=== PATIENT | female | born 1950 | race Caucasian/White ===

== ENCOUNTER 2018-11-30 13:10 | Inpatient (IN) | payer MEDICARE, OTHER ==
[~2018-11-30] VITALS: Ht 149.9 cm; Wt 40.8 kg
[~2018-11-30 13:10] MED LIST: INSU100V11 SQ; LEVO88TA2 PO
--- NOTE | 2018-11-30 13:25 | NUR ---
ARON FROM HOME C/O NAUSEA AND VOMITING X 30 MINS COGNOS REPORT DEVELOPER. BG OVER 500 COGNOS REPORT DEVELOPER, ZOFRAN GIVEN IN THE FIELD. PT AOX4, AMB, VSS, RR EVEN AND UNLABORED ON RA. MADE COMFORTABLE AND HOOKED TO MONITOR. READY FOR EVAL.
[2018-11-30] MEDS ORDERED: IV NS 0.9% 1,000 ML BAG IV ONE ×2 (13:30→16:30)
--- NOTE | 2018-11-30 13:31 | NUR ---
BG 490. DR LACY AWARE
[2018-11-30 14:10] LABS: BASOPHILS # (AUTO) 0.1 /CMM (0.0-0.2); BASOPHILS % (AUTO) 0.4 % (0.0-2.0); EOSINOPHILS % (AUTO) 0.1 % (0.0-6.0); HEMATOCRIT 41 % (33-45); HEMOGLOBIN 13.3 g/dL (11.5-14.8); LYMPHOCYTES # (AUTO) 0.7 /CMM (0.8-4.8); LYMPHOCYTES % (AUTO) 4.1 % (20.0-44.0); MEAN CORPUSCULAR HGB CONC 33 g/dl (31.0-36.0); MEAN CORPUSCULAR VOLUME 103 fL (82-100); MONOCYTES # (AUTO) 0.7 /CMM (0.1-1.30); MONOCYTES % (AUTO) 4.1 % (2.0-12.0); NEUTROPHILS # (AUTO) 15.9 /CMM (1.8-8.9); NEUTROPHILS % (AUTO) 91.3 % (43.0-81.0); PLATELET COUNT (AUTO) 221 /CMM (150-450); RED BLOOD CELL COUNT(AUTO) 3.95 MIL/uL (4.0-5.2); WHITE BLOOD COUNT (AUTO) 17.4 K/uL (4.3-11.0)
--- NOTE | 2018-11-30 14:15 | NUR ---
PT FEELING STOMACH DISCOMFORT. STATES IT FEELS LIKE SHE "NEEDS TO MOVE HER BOWELS". ENCOURAGED HER TO TRY TO GO TO THE BATHROOM.
[2018-11-30 14:18] LABS: APPEARANCE,URINE Clear (CLEAR); BILIRUBIN,URINE Negative (NEGATIVE); BLOOD, URINE Trace-intact Ery/uL (NEGATIVE); COLOR,URINE Yellow (YELLOW); KETONES,URINE 80 (NEGATIVE); LEUKOCYTE ESTERASE ,URINE Negative (NEGATIVE); NITRITE, URINE Negative (NEGATIVE); PH,URINE 5.5 (5.0-8.0); PROTEIN,URINE Trace mg/dl (NEGATIVE); UGLUCOSE 500 MG/DL mg/dL (NEGATIVE); UROBILINOGEN,URINE 0.2 EU/dL (0.2)
--- NOTE | 2018-11-30 14:20 | NUR ---
ADRIA CADENA AT BEDSIDE
[2018-11-30] MEDS ORDERED: MORPHINE SULFATE INJ 2 MG/ML DISP.SYRIN IV ONE (14:30)
[2018-11-30] MEDS ORDERED: ONDANSETRON HCL/PF 4 MG/2 ML VIAL IV ONE (14:30)
[2018-11-30] MEDS ORDERED: MORPHINE SULFATE INJ 4 MG/ML DISP.SYRIN ONE (14:32)
[2018-11-30] MEDS ORDERED: ONDANSETRON HCL/PF 4 MG/2 ML VIAL ONE (14:32)
[2018-11-30 14:41] LABS: ALBUMIN 3.8 g/dL (3.4-5.0); BILIRUBIN,DIRECT 0.2 mg/dL (0.0-0.2); CALCIUM, SERUM 9.2 mg/dL (8.5-10.1); CREATININE 1.1 mg/dL (0.6-1.3); POTASSIUM 4.5 mmol/L (3.5-5.1); TOTAL PROTEIN, SERUM 6.7 g/dL (6.4-8.2)
[2018-11-30 14:56] LABS: BACTERIA,URINE Rare /HPF (None Seen); SQUAMOUS EPITHELIAL CELL,UR Few /HPF (None Seen); WBC,URINE 0-2 /HPF (0-3)
--- NOTE | 2018-11-30 15:40 | NUR ---
PT TAKEN TO RADIOLOGY VIA GURNEY. STATES FEELING MUCH BETTER
[2018-11-30] MEDS ORDERED: INSULIN REGULAR, HUMAN 100 UNIT/ML 10 ML VIAL ONE (16:09)
[2018-11-30] MEDS ORDERED: INSULIN REGULAR, HUMAN 100 UNIT/ML 10 ML VIAL IV ONE (16:30)
[2018-11-30] MEDS ORDERED: INSU100I26 SQ (16:40)
[2018-11-30] MEDS ORDERED: BUSP10TA35 PO (16:40)
[2018-11-30] MEDS ORDERED: ESCI10TA PO (16:40)
[2018-11-30] MEDS ORDERED: SIMV10TA6 PO (16:40)
[2018-11-30] MEDS ORDERED: LEVOFLOXACIN 750 MG /D5W 150ML 150 ML IV ONE (16:53)
[2018-11-30] MEDS ORDERED: METRONIDAZOLE 500MG/ NS 100ML 100 ML IV ONE (16:53)
[2018-11-30] MEDS ORDERED: FLAGYL/NS RTU 500 MG/100 ML PIGGYBACK IV ONE (17:00)
[2018-11-30] MEDS ORDERED: LEVOFLOXACIN 750 MG /D5W 150ML PIGGYBACK IV ONE (17:00)
[2018-11-30] MEDS ORDERED: IOHEXOL-350 100 ML VIAL IV ONE (17:01)
[2018-11-30] MEDS ORDERED: CT SWABBABLE VALVE TRANS SET 1 EA INFUS.SET MC ONE (17:01)
[2018-11-30] MEDS ORDERED: IV NS 0.9% 250 ML IV ONE (17:01)
--- NOTE | 2018-11-30 17:33 | NUR ---
324-2 DX HYPERGLYCEMIA DEHYDRTATION, ANDONIAN
--- NOTE | 2018-11-30 18:25 | NUR ---
REPORT GIVEN TO IRENE PICKARD FOR 324-2 TELE Addendum: 11/30/18 at 1901 by VENKAT IRENE LOPEZ
--- NOTE | 2018-11-30 18:33 | NUR ---
BG 252. PA NOTIFIED
--- NOTE | 2018-11-30 18:50 | NUR ---
PT TRANSFERRED TO FLOOR VIA RANDY Addendum: 11/30/18 at 1902 by CJUWONO IV ABX CONTINUE TO INFUSE ON THE UNIT
[2018-11-30] MEDS ORDERED: Z GUARD REMEDY 2 OZ OINT TP PRN (19:00)
[2018-11-30] MEDS ORDERED: HYDROCODONE/APAP 5/325MG 1 EACH TABLET PO PRN (19:00)
[2018-11-30] MEDS ORDERED: MAG HYDROX/AL HYDROX/SIMETH 30 ML UDC PO PRN (19:00)
[2018-11-30] MEDS ORDERED: MAGNESIUM HYDROXIDE 30 ML UDC PO PRN (19:00)
[2018-11-30] MEDS ORDERED: ZOLPIDEM TARTRATE 5 MG TABLET PO PRN (19:00)
[2018-11-30] MEDS ORDERED: ACETAMINOPHEN 325 MG TABLET PO PRN (19:00)
[2018-11-30] MEDS ORDERED: DEXTROSE 50%-WATER 50 ML DISP.SYRIN IV PRN (19:00)
--- NOTE | 2018-11-30 19:30 | NUR ---
DRAMA TEACHER OPENING NOTES: RECEIVED PT ON ROOM AIR AND IS TOLERATING WELL. NO SOB NOTED. NO S/S OF DISTRESS. INFORMED PT THAT SHE IS TO BE NPO AT THIS TIME UNTIL FURTHER NOTICE. PT HAS IV AND IS BEING INFUSED WITH LEVAQUIN AT THIS TIME. BED KEPT IN LOW, LOCKED POSITION, AND SIDE RAILS X 2UP. PT TO BE PLACED ON TELE BOX. WILL CONTINUE TO MONITOR PT.
[2018-11-30 20:00] VITALS: BP 93/52
[2018-11-30] MEDS: IV NS 0.9% 1,000 ML IV SCH (20:27)
[2018-11-30] MEDS: INSULIN REGULAR, HUMAN 100 UNIT/ML 3 ML VIAL SQ PRN (23:11)
[2018-11-30] MEDS: BLOOD SUGAR DIAGNOSTIC 1 EACH STRIP IN SCH (23:11)
--- NOTE | 2018-11-30 23:11 | NUR ---
ACCOUNT MANAGER EMPLOYEE BENEFITS NOTES: BLOOD SUGAR THIS PM WAS 141. NO INSULIN WAS ADMINISTERED PT IS NPO AND ONLY ON IV NS . WILL CONTINUE TO MONITOR PT.
--- NOTE | 2018-11-30 23:29 | NUR ---
VP ANALYTICS NOTES: INFORMED DR. ALONZO THAT PT DOES NOT HAVE AN IV PAIN MEDS ALTHOUGH PT IS NOT COMPLAINING OF PAIN. FOR NOW, NO NEW ORDERS. ALSO EXPLAINED TO PT THAT LATEST BLOOD SUGAR 141 AND PT IS NPO AND THAT PT IT ON IV NS FLUIDS. KEEP IT AT IV NS FOR NOW. Addendum: 12/01/18 at 0218 by CHIDI YANG RN DOES NOT HAVE ANY IV ALSO EXPLAINED TO DR. ALONZO THAT LATEST BLOOD SUGAR IS 141
[2018-12-01] VITALS: BP 92/45
--- NOTE | 2018-12-01 00:26 | NUR ---
BEAM BUILDER HELPER NOTES: INFORMED DR. CHERI Denise THAT PT DID NOT TAKE HER BUSPAR AND LEXAPRO TODAY. PT HAS HX OF ANXIETY AND DEPRESSION AND PT IS CURRENTLY NPO. PT VERY ANXIOUS AND PANICKY RIGHT NOW. GOT ORDER FOR ATIVAN 0.5MG IV Q6HR PRN.
[2018-12-01] MEDS ORDERED: LORAZEPAM INJ 2 MG/ML VIAL IV PRN (00:30)
--- NOTE | 2018-12-01 00:42 | NUR ---
PROFESSIONAL ADVISOR NOTES: PT VERY ANXIOUS THAT SHE CANNOT GET HOLD OF ANY FAMILY IN THE [facility]. SHE HAS BEEN CALLING SINCE THE MORNING AND NO RESPONSE. PT'S HR ALMOST UP TO 110. PT WAS ADMINISTERED ATIVAN 0.5MG IV. WILL CONTINUE TO MONITOR.
[2018-12-01] MEDS ORDERED: METRONIDAZOLE 500MG/ NS 100ML 100 ML IV ONE (01:12)
--- NOTE | 2018-12-01 02:01 | NUR ---
WILLOW WORKER NOTES: FLAGYL 500MG WAS OVERRODE BY CHARGE NURSE. BAR GUN NOT SCANNING MED. HAD TO MANUALLY BARCODE MEDICATION.
[2018-12-01] MEDS ORDERED: METRONIDAZOLE 500MG/ NS 100ML 500 MG in PREMIX 1 EA IV SCH (03:00)
[2018-12-01] MEDS: IV NS 0.9% 1,000 ML IV SCH ×3 (03:44→18:25)
[2018-12-01] MEDS: ONDANSETRON HCL/PF 4 MG/2 ML VIAL IVP PRN ×2 (03:50→18:17)
--- NOTE | 2018-12-01 03:57 | NUR ---
PHARMACEUTICAL SALES SPECIALIST NOTES: PT FEELING NAUSEOUS. PT WAS ADMINISTERED ZOFRAN 4MG IV. WILL CONTINUE TO MONITOR.
[2018-12-01] MEDS: BLOOD SUGAR DIAGNOSTIC 1 EACH STRIP IN SCH ×4 (05:35→23:17)
--- NOTE | 2018-12-01 06:05 | NUR ---
REGISTERED MAIL CLERK NOTES: PAGED DR. ALONZO IN REGARDS TO BLOOD SUGAR BEING 343 AND PT BEING NPO AND ONLY ON IV NS AT 125ML/HR.
[2018-12-01 06:24] LABS: BASOPHILS # (AUTO) 0.1 /CMM (0.0-0.2); BASOPHILS % (AUTO) 0.5 % (0.0-2.0); EOSINOPHILS % (AUTO) 1.3 % (0.0-6.0); HEMATOCRIT 38 % (33-45); HEMOGLOBIN 12.2 g/dL (11.5-14.8); LYMPHOCYTES # (AUTO) 0.7 /CMM (0.8-4.8); LYMPHOCYTES % (AUTO) 3.9 % (20.0-44.0); MEAN CORPUSCULAR HGB CONC 32 g/dl (31.0-36.0); MEAN CORPUSCULAR VOLUME 104 fL (82-100); MONOCYTES # (AUTO) 0.8 /CMM (0.1-1.30); MONOCYTES % (AUTO) 4.8 % (2.0-12.0); NEUTROPHILS # (AUTO) 15.6 /CMM (1.8-8.9); NEUTROPHILS % (AUTO) 89.5 % (43.0-81.0); PLATELET COUNT (AUTO) 206 /CMM (150-450); RED BLOOD CELL COUNT(AUTO) 3.65 MIL/uL (4.0-5.2); WHITE BLOOD COUNT (AUTO) 17.4 K/uL (4.3-11.0)
--- NOTE | 2018-12-01 06:46 | NUR ---
TAKE UP SUPERVISOR CLOSING NOTES: ALL NEEDS WERE ATTENDED AND ANTICIPATED FOR. PT KEPT CLEAN, DRY, AND COMFORTABLE. PT ON TELE BOX AND READING SHOWS SINUS TACH 107. IV REMAINS INTACT AND IS BEING INFUSED WITH IV NS AT 125ML/HR. PT HAS BEEN NPO UPON ADMISSION. BLOOD SUGAR THIS AM WAS 343 BUT INSULIN IS HELD PT IS NPO AND ONLY ON IV NS. CHARGE NURSE MADE AWARE MD WAS CONTACTED BUT NO RESPONSE BACK. WILL ENDORSE TO AM NURSE ABOUT BLOOD SUGAR. CHARGE NURSE MADE AWARE WELL. WILL ENDORSE TO AM NURSE FOR LYLA.
[2018-12-01] MEDS: INSULIN REGULAR, HUMAN 100 UNIT/ML 3 ML VIAL SQ PRN ×4 (06:58→23:13)
--- NOTE | 2018-12-01 07:03 | NUR ---
RESEARCH AND DEVELOPMENT CHEMIST NOTES: DR. AVILES ON FLOOR. MADE HIM AWARE OF CRITICAL LACTIC ACID 2.1 , CO2 9/[address] AVILES, CHECK FINGERSTICK AND GIVE INSULIN PER SCALE. 15 UNITS OF INSULIN WAS ADMINISTERED.
[2018-12-01 07:08] LABS: CALCIUM, SERUM 8.4 mg/dL (8.5-10.1); MAGNESIUM 1.5 mg/dL (1.8-2.4); PHOSPHORUS 3.6 mg/dL (2.5-4.9); POTASSIUM 4.6 mmol/L (3.5-5.1)
[2018-12-01 08:00] VITALS: BP 119/56
--- NOTE | 2018-12-01 08:16 | NUR ---
BRAID CUTTER OPENING NOTES Received Patient comfortable and resting in bed. A/O x 4. VS stable with no acute distress. Breathing even and unlabored on room air with no respiratory distress. Patient stated ABDOMINAL PAIN 02/14. Abdomen soft and non-tender. Will intervene as ordered. Tele monitor in place and operational SR HR-100. 20g PIV on RAC clean, dry, intact and flushing well with IVF NS running at 125ml/hr. NPO precautions in place. Patient aware and verbalizes understanding. Safety precautions in place. Bed locked and set to lowest position with side rails x 2 up. All needs rendered at this time. Will continue to monitor.
[2018-12-01] MEDS ORDERED: MORPHINE SULFATE INJ 2 MG/ML DISP.SYRIN IV PRN (08:30)
[2018-12-01 09:59] LABS: NEUTROPHILS % (MANUAL) 89 (42-76)
[2018-12-01 10:00] LABS: BAND % (MANUAL) 6 % (0.0-5.0); LYMPHOCYTES % (MANUAL) 1 % (16-48); MONOCYTES % (MANUAL) 4 % (0-11.0)
[2018-12-01 12:00] VITALS: BP 109/50
[2018-12-01] MEDS: Magnesium 1GM/D5W 100ML PREMIX 100 ML IV SCH ×2 (12:06→13:30)
[2018-12-01] MEDS: METRONIDAZOLE 500MG/ NS 100ML 500 MG in PREMIX 1 EA IV SCH ×2 (13:31→21:23)
[2018-12-01 16:00] VITALS: BP 102/63
--- NOTE | 2018-12-01 16:24 | NUR ---
CARDIAC CATHETERIZATION TECHNOLOGIST NOTES Spoke to Dr. Chacon regarding critical lab value Lactic Acid 2.6. NNO. Per MD, will notify Dr. Sharif of critical lab value as well.
--- NOTE | 2018-12-01 17:02 | NUR ---
ASSEMBLER PLASTIC BOAT NOTES Notified Dr. Sharif of critical lab value Lactic Acid 2.6. NNO. Patient in stable condition. Denies pain. Will continue to monitor.
[2018-12-01] MEDS ORDERED: LEVOFLOXACIN 500 MG /D5W 100ML 500 MG in PREMIX 1 EA IV SCH (19:00)
--- NOTE | 2018-12-01 19:42 | NUR ---
SOLE STITCHER HAND CLOSING NOTES Patient comfortable and watching TV in bed. A/O x 4. VS stable with no acute distress. Breathing even and unlabored on room air with no respiratory distress. Denies pain. Tele monitor in place and operational SR HR-92. 20g PIV on RAC clean, dry, intact and flushing well with IVF NS running at 125ml/hr. Safety precautions in place. Bed locked and set to lowest position with side rails x 2 up. All needs rendered at this time. Will endorse plan of care to oncoming shift.
--- NOTE | 2018-12-01 19:46 | NUR ---
FOOD SERVICE SALES REPRESENTATIVES OPENING NOTES: RECEIVED PT ON ROOM AIR AND IS TOLERATING WELL. PT SITTING UP AND IS IN BED. SON AT BEDSIDE. PT EATING AND ON HER PHONE. PT A/OX4. PT HAS IV AND IS BEING INFUSED WITH LEVAQUIN AT THIS TIME. BED KEPT IN LOW, LOCKED POSITION, AND SIDE RAILS X 2UP. PT ON TELE BOX AND READING SHOWS SR 90. WILL CONTINUE TO MONITOR PT.
[2018-12-01 20:00] VITALS: BP 108/56
--- NOTE | 2018-12-01 23:32 | NUR ---
MAKEUP ARTISTRY INSTRUCTOR NOTES: RAC IV NOTED TO BE LEAKING. TOOK IV OUT AND STARTED NEW ONE ON L HAND #20G.
[2018-12-02] VITALS: BP 112/60
[2018-12-02] MEDS: IV NS 0.9% 1,000 ML IV SCH ×2 (03:42→11:00)
[2018-12-02 03:52] VITALS: BP 114/80
[2018-12-02 04:00] VITALS: BP 114/80
[2018-12-02] MEDS: METRONIDAZOLE 500MG/ NS 100ML 500 MG in PREMIX 1 EA IV SCH ×2 (04:02→12:54)
[2018-12-02] MEDS: BLOOD SUGAR DIAGNOSTIC 1 EACH STRIP IN SCH ×2 (05:54→12:00)
[2018-12-02] MEDS: INSULIN REGULAR, HUMAN 100 UNIT/ML 3 ML VIAL SQ PRN ×2 (05:59→09:00)
--- NOTE | 2018-12-02 06:00 | NUR ---
SKEIN WASHER NOTES: BLOOD SUGAR THIS AM WAS 79. NO INSULIN WAS ADMINISTERED. GAVE PT CRANBERRY JUICE REQUESTED.
--- NOTE | 2018-12-02 06:28 | NUR ---
RELATIONSHIP COUNSELOR CLOSING NOTES: ALL NEEDS WERE ATTENDED AND ANTICIPATED FOR. PT KEPT CLEAN, DRY, AND COMFORTABLE. PT ASLEEP AT THIS TIME AND RESTING COMFORTABLY. NEW IV ON L HAND REMAINS INTACT AND IS BEING INFUSED WITH IV NS AT 125ML/HR. BLOOD SUGAR THIS AM WAS 79. NO INSULIN WAS ADMINISTERED AND CRANBERRY JUICE WAS PROVIDED. BED KEPT IN LOW, LOCKED POSITION, AND SIDE RAILS X 2UP. PT ON TELE BOX AND READING SHOWS SR 83. WILL ENDORSE TO AM NURSE FOR LYLA.
--- NOTE | 2018-12-02 07:51 | NUR ---
lay out machine operator Opening Note Patient currently resting in bed Semi-Fowlers position, no acute distress noted. Easily arousable. Alert and oriented x4. Respirations even and unlabored on room air. External personnel monitor in place: currently normal sinus rhythm at 99 bpm. Peripheral IV access to the left hand 20 gauge, intact, patent and saline locked. Safety and fall precautions in place: bed in lowest and locked position, side rails up x2, bed alarm on, call light and personal possessions in reach, room well lit, floor clutter-free. Verbalized understanding of safety measures. Patient currently clean, dry and comfortable. Will continue to monitor and intervene as needed.
[2018-12-02 08:00] VITALS: BP 133/59
[2018-12-02 08:40] LABS: CALCIUM, SERUM 8.5 mg/dL (8.5-10.1); MAGNESIUM 1.8 mg/dL (1.8-2.4); POTASSIUM 3.7 mmol/L (3.5-5.1)
--- NOTE | 2018-12-02 14:00 | NUR ---
clinical phlebotomist Discharge Note Patient currently resting in bed Semi-Fowlers position, no acute distress noted. Easily arousable. Vital signs stable, ambulates with steady gait. Alert and oriented x4, able to make needs known. Respirations even and unlabored on room air. Peripheral IV access to the left hand 20 gauge, removed with catheter tip intact. No redness, swelling or bleeding of the site noted. ID bands removed. Skin assessment completed, no issues noted. Exitcare and discharge instructions given to patient, with son present at bedside, verbalized understanding and acknowledged via signature on form. Discharged with all personal belongings, as noted per form, in presence of family. Escorted to [facility] via wheelchair by VIKI Godinez for discharge via private car.
== END 2018-12-02 16:20 | disposition home or self-care (01) | DRG 74 ==
LOC: ER 13:15 → TELE 17:37
PROVIDERS: ADMIT Family Medicine; ATTEND Nurse Practitioner Acute Care
DX: E11.43 Type 2 diabetes mellitus with diabetic autonomic (poly)neuropathy (principal); E87.2 Acidosis; E11.65 Type 2 diabetes mellitus with hyperglycemia; K52.9 Noninfective gastroenteritis and colitis, unspecified; K31.84 Gastroparesis; E83.42 Hypomagnesemia; E78.5 Hyperlipidemia, unspecified; E03.9 Hypothyroidism, unspecified; F41.9 Anxiety disorder, unspecified; D72.829 Elevated white blood cell count, unspecified; R79.89 Other specified abnormal findings of blood chemistry; M06.9 Rheumatoid arthritis, unspecified; Z88.0 Allergy status to penicillin; K57.90 Diverticulosis of intestine, part unspecified, without perforation or abscess without bleeding; Z86.010 Personal history of colon polyps; I70.0 Atherosclerosis of aorta; K76.0 Fatty (change of) liver, not elsewhere classified
CPT/HCPCS: 36415; 71045-TC; 80048-TC; 80061-TC; 80076-TC; 81000-TC; 82010-TC; 82962-TC; 83605-TC; 83735-TC; 84100-TC; 85025-TC; 87081-TC; A4216; G0378; J1815; J1956; J2060; J2270; J2405; J3475; J3490; J7030; J7050; Q9967

== ENCOUNTER 2021-09-11 15:44 | Inpatient (IN) | payer MEDICARE, OTHER ==
[~2021-09-11] VITALS: Ht 149.9 cm; Wt 36.3 kg
[~2021-09-11 15:44] MED LIST changes: +BUSP10TA35 PO; +ESCI10TA PO; +INSU100I26 SQ; +SIMV10TA98 PO
--- NOTE | 2021-09-11 15:55 | NUR ---
ARON 839 FROM HOME C/O VOMITING AND DIARRHEA STARTED THIS MORNING. THE PATIENT C/O ABD PAIN /10. IN ROOM AIR AND DENIES SOB. RESPIRATION REGULAR AND UNLABORED. ATTACHED TO THE MONITOR. WARM BLANKET PROVIDED. WILL CONTINUE TO MONITOR THE PATIENT.
--- NOTE | 2021-09-11 15:57 | NUR ---
SEEN AND EXMAINED BY .
[2021-09-11] MEDS ORDERED: ONDANSETRON HCL/PF 4 MG/2 ML VIAL IVP ONE (16:00)
[2021-09-11] MEDS ORDERED: IV NS 0.9% 1,000 ML BAG IV ONE ×2 (16:00→17:30)
[2021-09-11] MEDS ORDERED: MORPHINE SULFATE INJ 2 MG/ML DISP.SYRIN IV ONE (16:00)
[2021-09-11] MEDS ORDERED: ONDANSETRON HCL/PF 4 MG/2 ML VIAL ONE (16:06)
--- NOTE | 2021-09-11 16:10 | NUR ---
IV LINE ESTABLISHED BLOOD DRAWN AND SENT TO LAB.
[2021-09-11 16:30] LABS: BASOPHILS # (AUTO) 0.1 K/uL (0.0-0.2); BASOPHILS % (AUTO) 0.8 % (0.0-2.0); EOSINOPHILS % (AUTO) 0.1 % (0.0-6.0); HEMATOCRIT 45 % (33-45); HEMOGLOBIN 14.1 g/dL (11.5-14.8); LYMPHOCYTES # (AUTO) 1.2 K/uL (0.8-4.8); LYMPHOCYTES % (AUTO) 8.9 % (20.0-44.0); MEAN CORPUSCULAR HGB CONC 32 g/dl (31.0-36.0); MEAN CORPUSCULAR VOLUME 102 fL (82-100); MONOCYTES # (AUTO) 0.3 K/uL (0.1-1.30); MONOCYTES % (AUTO) 1.8 % (2.0-12.0); NEUTROPHILS % (AUTO) 88.4 % (43.0-81.0); PLATELET COUNT (AUTO) 273 K/uL (150-450); RED BLOOD CELL COUNT(AUTO) 4.36 MIL/uL (4.0-5.2); WHITE BLOOD COUNT (AUTO) 13.6 K/uL (4.3-11.0)
[2021-09-11] MEDS ORDERED: MORPHINE SULFATE INJ 2 MG/ML DISP.SYRIN ONE (16:33)
--- NOTE | 2021-09-11 16:39 | NUR ---
THE PATIENT UNABLE TO PROVIDE URINE AT THIS TIME. WILL ENCOURAGE AGAIN.
[2021-09-11 17:16] LABS: CALCIUM, SERUM 9.7 mg/dL (8.5-10.1); CARBON DIOXIDE 13 mmol/L (21-32); CHLORIDE 94 mmol/L (98-107); CREATININE 1.3 mg/dL (0.6-1.3); GLUCOSE 664 mg/dL (74-106); POTASSIUM 3.9 mmol/L (3.5-5.1); SODIUM SERUM 133 mmol/L (136-145); UREA NITROGEN, BLOOD 25 mg/dL (7-18)
[2021-09-11] MEDS ORDERED: ROSU20TA32 PO (17:21)
[2021-09-11 17:30] LABS: ALANINE AMINOTRANSFERASE 32 U/L (12-78); ALBUMIN 4.2 g/dL (3.4-5.0); ALKALINE PHOSPHATASE 150 U/L (46-116); ASPARTATE AMINOTRANSFERASE 33 U/L (15-37); BILIRUBIN,DIRECT 0.2 mg/dL (0.0-0.2); BILIRUBIN,TOTAL 0.8 mg/dL (0.2-1.0); TOTAL PROTEIN, SERUM 7.5 g/dL (6.4-8.2)
[2021-09-11] MEDS ORDERED: FLAGYL/NS RTU 500 MG/100 ML PIGGYBACK IV ONE (17:30)
[2021-09-11] MEDS ORDERED: INS (REG) DRIP 100 U/100 ML NS IV PRN ×2 (17:30)
[2021-09-11] MEDS ORDERED: CIPROFLOXACIN IV RTU 400 MG in PREMIX 1 EA IV SCH (17:30)
[2021-09-11 17:34] LABS: ABG BASE EXCESS -17.8 mmol/L; ABG PH 7.166 (7.350-7.450); ABG PO2 103.3 mmHg (75.0-100.0); COHb 0.2 % (0.5-1.5); MetHb 0.5 % (0.0-1.5); O2Hb 95.8 % (94.0-97.0); SITE, ABG Right Radial; VENT MODE, BG room air
--- NOTE | 2021-09-11 17:36 | NUR ---
CALLED NURSING REGARDING PT BED
--- NOTE | 2021-09-11 17:44 | NUR ---
GOING ICU 256
[2021-09-11] MEDS ORDERED: POTASSIUM CL. PREMIX PERIPHER. 50 ML IV SCH (18:00)
[2021-09-11 18:13] LABS: BILIRUBIN,URINE NEGATIVE (NEGATIVE); COLOR,URINE YELLOW (YELLOW); LEUKOCYTE ESTERASE ,URINE NEGATIVE (NEGATIVE); NITRITE, URINE NEGATIVE (NEGATIVE); PH,URINE 5.5 (5.0-8.0); PROTEIN,URINE NEGATIVE (NEGATIVE); UGLUCOSE >=1000 mg/dL (NEGATIVE); UROBILINOGEN,URINE 0.2 EU/dL (0.2)
[2021-09-11 18:15] LABS: BACTERIA,URINE Rare /HPF (None Seen); RBC,URINE NONE SEEN /HPF (0-2); SQUAMOUS EPITHELIAL CELL,UR Few /HPF (None Seen); WBC,URINE NONE SEEN /HPF (0-3)
[2021-09-11] MEDS ORDERED: MAG HYDROX/AL HYDROX/SIMETH 30 ML UDC PO PRN (18:30)
[2021-09-11] MEDS ORDERED: MAGNESIUM HYDROXIDE 30 ML UDC PO PRN (18:30)
[2021-09-11] MEDS ORDERED: ZOLPIDEM TARTRATE 5 MG TABLET PO PRN (18:30)
[2021-09-11] MEDS ORDERED: ACETAMINOPHEN 325 MG TABLET PO PRN (18:30)
[2021-09-11] MEDS ORDERED: IV NS 0.9% 1,000 ML IV PRN (18:30)
[2021-09-11] MEDS ORDERED: Z GUARD REMEDY 4 OZ OINT TP PRN (18:30)
[2021-09-11] MEDS ORDERED: ONDANSETRON HCL/PF 4 MG/2 ML VIAL IVP PRN (18:30)
[2021-09-11 18:32] LABS: LIPASE 76 U/L (73-393)
--- NOTE | 2021-09-11 18:45 | NUR ---
BLOOD SUGAR IS 480.
--- NOTE | 2021-09-11 18:48 | NUR ---
THE PATIENT IS TRANSFERED TO [facility] IN STABLE CONDITION AND PER ACLS POLICY
--- NOTE | 2021-09-11 18:48 | NUR ---
REPORT GIVEN TO NURSE BARNEY FOR LYLA. INCLUDED IN THE REPORT THAT THE PATIENT STILL NEEDS TO BE GIVEN 2 BAGS OF POTASSIUM CHLORIDE 20 MEQ (DR ARMSTRONG ORDER).
[2021-09-11 19:00] VITALS: BP 114/73
[2021-09-11] MEDS: ATORVASTATIN 40 MG TABLET PO SCH (19:09)
[2021-09-11] MEDS: ENOXAPARIN SODIUM 40 MG/0.4 ML DISP.SYRIN SQ SCH (19:10)
[2021-09-11] MEDS: BLOOD SUGAR DIAGNOSTIC 1 EACH STRIP IN SCH ×5 (19:11→23:35)
--- NOTE | 2021-09-11 19:15 | NUR ---
RN OPENING NOTES RECEIVED PATIENT ON BED ALERT AND VERBALLY REPONSIVE, RESPIRATORY EVEN AND UNLABORED, NO SOB NOTED, NOT IN DISTRESS. REMAIN AFEBRILE. ON ROOM AIR SATING AT 97%. NOTED WITH PERIPHERAL LINE ON LAC #18, RAC #18 AND LEFT FOREARM #20, INTACT, PATENT AND FLUSHED WITH NS, NO INFILTRATION NOTED AT SITE. RUNNING WITH HEPARIN DRIP WITH CURRENT SETTING AT 7.5 UNITS/HR. AND NS 1L @ 150ML/HR. ALL SAFETY MEASURE PROVIDED.. BED IN LOWEST POSITION. LOCKED. WILL CONTINUE TO MONITOPR
[2021-09-11 19:31] VITALS: BP 124/68
[2021-09-11 20:00] VITALS: BP 110/48
[2021-09-11] MEDS: INSULIN REGULAR, HUMAN 100 UNIT in IV NS 0.9% 99 ML IV PRN ×6 (20:00→23:26)
[2021-09-11 20:30] VITALS: BP 108/45
[2021-09-11] MEDS ORDERED: IV NS 0.9% 1,000 ML IV STA (20:59)
[2021-09-11 21:01] VITALS: BP 98/46
[2021-09-11 21:22] LABS: CALCIUM, SERUM 8.1 mg/dL (8.5-10.1); POTASSIUM 3.9 mmol/L (3.5-5.1)
[2021-09-11] MEDS: IV D5/ 0.9% NACL 1,000 ML IV PRN (23:30)
--- NOTE | 2021-09-11 23:30 | NUR ---
RN NOTES NOTIFIED ELIGIBILITY COUNSELOR ARPITA Fitch, REGARDING BS 114, WITH NEW ORDER TO D/C NS @ 150 ML/HR, THEN START D5 NS @ 150 ML/HR NOTED AND CARRIED OUT.
[2021-09-11] MEDS: POTASSIUM CL. PREMIX PERIPHER. 50 ML IV SCH (23:37)
--- NOTE | 2021-09-11 23:37 | NUR ---
RN NOTES UPON REVIEWING THE CHART, PT. HAS ORDER OF POTASSIUM 20 MEQ FROM ER, WHICH IS NOT GIVEN, VALERIA Fitch MADE AWARE AND PER VALERIA Mills. GIVE THE POTASSIUM 20 MEQ NOTED AND CARRIED OUT.
[2021-09-12] VITALS (10 sets, daily range): BP systolic 84–114; BP diastolic 46–63
[2021-09-12] MEDS: BLOOD SUGAR DIAGNOSTIC 1 EACH STRIP IN SCH ×6 (00:10→23:54)
[2021-09-12] MEDS: POTASSIUM CL. PREMIX PERIPHER. 50 ML IV SCH ×3 (00:45→22:45)
[2021-09-12 01:15] LABS: CALCIUM, SERUM 7.5 mg/dL (8.5-10.1); CARBON DIOXIDE 22 mmol/L (21-32); CHLORIDE 111 mmol/L (98-107); CREATININE 0.8 mg/dL (0.6-1.3); GLUCOSE 125 mg/dL (74-106); MAGNESIUM 1.4 mg/dL (1.8-2.4); POTASSIUM 3.8 mmol/L (3.5-5.1); SODIUM SERUM 141 mmol/L (136-145); UREA NITROGEN, BLOOD 16 mg/dL (7-18)
--- NOTE | 2021-09-12 01:30 | NUR ---
RN NOTES NOTIFIED RADIO ADJUSTER ARPITA Fitch REGARDING PT. LATEST ANION GAP- 12, WITH NEW ORDER TO D/C INSULIN DRIP AND START MODERATE SLIDING SCALE NOTED AND CARRIED OUT
[2021-09-12] MEDS: Magnesium 1GM/D5W 100ML PREMIX 100 ML IV SCH ×4 (02:26→05:35)
--- NOTE | 2021-09-12 02:30 | NUR ---
RN NOTES RECEIVED NEW ORDER FROM VALERIA Fitch TO REPLACE MAGNESIUM NOTED AND CARRIED OUT
[2021-09-12 04:50] LABS: BASOPHILS # (AUTO) 0.1 K/uL (0.0-0.2); BASOPHILS % (AUTO) 0.4 % (0.0-2.0); EOSINOPHILS % (AUTO) 0.1 % (0.0-6.0); HEMATOCRIT 35 % (33-45); HEMOGLOBIN 11.6 g/dL (11.5-14.8); MEAN CORPUSCULAR HGB CONC 33 g/dl (31.0-36.0); MEAN CORPUSCULAR VOLUME 100 fL (82-100); MONOCYTES # (AUTO) 0.8 K/uL (0.1-1.30); MONOCYTES % (AUTO) 5.1 % (2.0-12.0); NEUTROPHILS # (AUTO) 14.4 K/uL (1.8-8.9); NEUTROPHILS % (AUTO) 88.4 % (43.0-81.0); PLATELET COUNT (AUTO) 213 K/uL (150-450); RED BLOOD CELL COUNT(AUTO) 3.51 MIL/uL (4.0-5.2); WHITE BLOOD COUNT (AUTO) 16.3 K/uL (4.3-11.0)
[2021-09-12 04:54] LABS: CALCIUM, SERUM 7.9 mg/dL (8.5-10.1); CARBON DIOXIDE 18 mmol/L (21-32); CHLORIDE 108 mmol/L (98-107); CREATININE 0.8 mg/dL (0.6-1.3); GLUCOSE 258 mg/dL (74-106); MAGNESIUM 2.6 mg/dL (1.8-2.4); SODIUM SERUM 137 mmol/L (136-145); UREA NITROGEN, BLOOD 15 mg/dL (7-18)
[2021-09-12] MEDS ORDERED: INSULIN REGULAR, HUMAN 100 UNIT/ML 3 ML VIAL ONE (05:24)
[2021-09-12] MEDS: IV D5/ 0.9% NACL 1,000 ML IV PRN (05:56)
[2021-09-12] MEDS ORDERED: DEXTROSE 50%-WATER 50 ML DISP.SYRIN IV PRN (06:00)
[2021-09-12] MEDS: INSULIN REGULAR, HUMAN 100 UNIT/ML 3 ML VIAL SQ PRN ×3 (06:03→18:32)
--- NOTE | 2021-09-12 06:30 | NUR ---
RN NOTES NOTIFIED STEEL TIER ARPITA Fitch REGARDING PATIENT LATEST BLOOD SUGAR 371 mg/dL, WITH NEW ORDER TO D/C D5NS 150 ML/HR, THE START NS 100 ML/HR. NOTED AND CARRIED OUT.
[2021-09-12] MEDS: IV NS 0.9% 1,000 ML IV PRN (06:33)
[2021-09-12] MEDS: LEVOTHYROXINE SODIUM 88 MCG TABLET PO SCH (07:30)
[2021-09-12] MEDS: IV NS 0.9% 1,000 ML IV SCH ×4 (08:09→23:39)
[2021-09-12] MEDS: busPIRone 5 MG TABLET PO SCH ×2 (08:41→17:51)
[2021-09-12] MEDS: PANTOPRAZOLE 40 MG TABLET.DR PO SCH (08:42)
[2021-09-12] MEDS: ESCITALOPRAM OXALATE (10 MG) 10 MG TABLET PO SCH (08:42)
[2021-09-12] MEDS ORDERED: MEROPENEM 1 G in IV NS 0.9% 100 ML IV SCH (09:00)
[2021-09-12] MEDS ORDERED: CIPROFLOXACIN IV RTU 400 MG in PREMIX 1 EA IV SCH (09:00)
[2021-09-12 11:24] LABS: BILIRUBIN,TOTAL 0.7 mg/dL (0.2-1.0); CALCIUM, SERUM 7.8 mg/dL (8.5-10.1); CREATININE 0.9 mg/dL (0.6-1.3); POTASSIUM 3.4 mmol/L (3.5-5.1); TOTAL PROTEIN, SERUM 5.5 g/dL (6.4-8.2)
[2021-09-12] MEDS: INSULIN GLARGINE, 100 UNIT/ML CARTRIDGE SQ SCH ×2 (11:48→18:30)
[2021-09-12] MEDS: CIPROFLOXACIN IV RTU 400 MG in PREMIX 1 EA IV SCH (13:32)
[2021-09-12] MEDS: METRONIDAZOLE 500MG/ NS 100ML 500 MG in PREMIX 1 EA IV SCH ×2 (15:54→22:44)
[2021-09-12] MEDS: ATORVASTATIN 40 MG TABLET PO SCH (17:51)
[2021-09-12] MEDS: ENOXAPARIN SODIUM 40 MG/0.4 ML DISP.SYRIN SQ SCH (17:51)
[2021-09-12 18:47] LABS: CALCIUM, SERUM 7.6 mg/dL (8.5-10.1); CREATININE 0.9 mg/dL (0.6-1.3)
--- NOTE | 2021-09-12 19:47 | NUR ---
RN OPENING NOTES RECEIVED PATIENT IN BED ALERT AND VERBALLY RESPONSIVE, RESPIRATORY EVEN AND UNLABORED, NO SOB NOTED, NOT IN DISTRESS. IV SITE NOTED ON LEFT AC, FLUSHED AND PATENT. ALL SAFETY MEASURES IN PLACE. WILL CONTINUE TO MONITOR PATIENT THROUGHOUT THE SHIFT.
[2021-09-12] MEDS ORDERED: POTASSIUM CHLORIDE 10 MEQ/50 ML PREMIXED IVPB FOR PERIPHERAL LINE IV ONE (21:00)
--- NOTE | 2021-09-12 21:00 | NUR ---
RN NOTE CONTACTED MILTON MEADOWS FOR PATIENTS LOW POTASSIUM LEVEL (3.0) , ORDERED 50MEW KCL/ 10MEQ PER HR. WILL CARRY OUT ORDERS.
--- NOTE | 2021-09-12 22:20 | NUR ---
RN NOTE PATIENT COMPLAINING OF EXTREME PAIN AT IV SITE WERE KCL IS BEING INFUSED.INFUSION PAUSED. SITE RED. LINED FLUSHED. WILL ESTABLISH A NEW IV SITE TO CONTINUE KCL.
[2021-09-13] VITALS: BP_SYST 119; BP_SYST 153; BP_DIAS 50; BP_DIAS 57
[2021-09-13] MEDS: POTASSIUM CL. PREMIX PERIPHER. 50 ML IV SCH ×3 (00:10→04:33)
[2021-09-13] MEDS: CIPROFLOXACIN IV RTU 400 MG in PREMIX 1 EA IV SCH ×2 (00:55→12:11)
[2021-09-13 01:08] LABS: CALCIUM, SERUM 7.9 mg/dL (8.5-10.1); CARBON DIOXIDE 20 mmol/L (21-32); CHLORIDE 111 mmol/L (98-107); CREATININE 0.9 mg/dL (0.6-1.3); GLUCOSE 70 mg/dL (74-106); POTASSIUM 3.6 mmol/L (3.5-5.1); SODIUM SERUM 140 mmol/L (136-145); UREA NITROGEN, BLOOD 12 mg/dL (7-18)
[2021-09-13] MEDS: METRONIDAZOLE 500MG/ NS 100ML 500 MG in PREMIX 1 EA IV SCH ×3 (05:53→22:39)
[2021-09-13] MEDS: BLOOD SUGAR DIAGNOSTIC 1 EACH STRIP IN SCH (06:08)
--- NOTE | 2021-09-13 06:09 | NUR ---
RN NOTE BS 49 - ADMINISTERED D50% PER PROTOCOL
[2021-09-13 06:20] LABS: BASOPHILS % (AUTO) 0.4 % (0.0-2.0); EOSINOPHILS % (AUTO) 0.1 % (0.0-6.0); HEMATOCRIT 36 % (33-45); HEMOGLOBIN 11.7 g/dL (11.5-14.8); LYMPHOCYTES # (AUTO) 1.2 K/uL (0.8-4.8); LYMPHOCYTES % (AUTO) 11.1 % (20.0-44.0); MEAN CORPUSCULAR HGB CONC 33 g/dl (31.0-36.0); MEAN CORPUSCULAR VOLUME 100 fL (82-100); MONOCYTES # (AUTO) 0.6 K/uL (0.1-1.30); MONOCYTES % (AUTO) 5.4 % (2.0-12.0); NEUTROPHILS # (AUTO) 9.3 K/uL (1.8-8.9); PLATELET COUNT (AUTO) 202 K/uL (150-450); RED BLOOD CELL COUNT(AUTO) 3.58 MIL/uL (4.0-5.2); WHITE BLOOD COUNT (AUTO) 11.2 K/uL (4.3-11.0)
[2021-09-13 06:33] LABS: CALCIUM, SERUM 8.5 mg/dL (8.5-10.1); CREATININE 0.9 mg/dL (0.6-1.3); MAGNESIUM 2.1 mg/dL (1.8-2.4); POTASSIUM 3.6 mmol/L (3.5-5.1)
[2021-09-13] MEDS: IV NS 0.9% 1,000 ML IV SCH (06:55)
--- NOTE | 2021-09-13 07:37 | NUR ---
RN NOTE ALL BAGS OF KCL COMPLETED ORDERED. ALL PATIENT NEEDS MET THROUGHOUT THE NIGHT. PLAN OF CARE FOR PATIENT ENDORSED TO AM NURSE.
[2021-09-13 08:00] VITALS: BP 155/80
--- NOTE | 2021-09-13 08:20 | NUR ---
RN OPENING NOTE PATIENT RECEIVED IN BED, AO X 4, IN NO ACUTE DISTRESS NOTED. RESPIRATORY EVEN AND UNLABORED ON ROOM. SKIN IS WARM TO TOUCH, KEEP CLEAN/DRY. KEPT ELEVATED HOB FOR ASPIRATION PRECAUTION, LOWEST POSITION OF THE BED, AND S/R UP X 2 FOR SAFETY, ALL SAFETY PRECAUTION APPLIED. CALL LIGHT WITHIN REACH, WILL CONTINUE TO MONITOR.
[2021-09-13] MEDS ORDERED: DEXTROSE 50%-WATER 50 ML DISP.SYRIN IV PRN (08:30)
[2021-09-13] MEDS ORDERED: *INSULIN REGULAR(HUMULIN R)HUM 100 UNIT/ML VIAL SQ PRN (08:30)
[2021-09-13] MEDS: INSULIN GLARGINE, 100 UNIT/ML CARTRIDGE SQ SCH ×2 (08:55→16:57)
[2021-09-13] MEDS: ESCITALOPRAM OXALATE (10 MG) 10 MG TABLET PO SCH (09:01)
[2021-09-13] MEDS: busPIRone 5 MG TABLET PO SCH ×2 (09:01→16:56)
[2021-09-13] MEDS: PANTOPRAZOLE 40 MG TABLET.DR PO SCH (09:01)
[2021-09-13] MEDS: LEVOTHYROXINE SODIUM 88 MCG TABLET PO SCH (09:02)
[2021-09-13] MEDS: BLOOD SUGAR DIAGNOSTIC 1 EACH STRIP VI SCH ×3 (11:37→22:53)
[2021-09-13] MEDS: GLUCERNA SHAKE 237 ML CAN PO SCH ×2 (11:41→17:07)
[2021-09-13] MEDS ORDERED: K PHOS NEUTRAL 250 MG TABLET PO ONE (13:00)
[2021-09-13 16:00] VITALS: BP 155/76
[2021-09-13] MEDS: INSULIN REGULAR, HUMAN 100 UNIT/ML 3 ML VIAL SQ PRN (16:58)
[2021-09-13] MEDS: ATORVASTATIN 40 MG TABLET PO SCH (17:48)
[2021-09-13] MEDS: ENOXAPARIN SODIUM 40 MG/0.4 ML DISP.SYRIN SQ SCH (17:49)
--- NOTE | 2021-09-13 18:40 | NUR ---
RN CLOSING NOTE PATENT IN BED, REMAINS AO X 3, IN NO ACUTE DISTRESS OBSERVED. RESPIRATORY EVEN AND UNLABORED ON ROOM AIR. SKIN IS WARM TO TOUCH KEEP CLEAN/DRY, INTACT IV SITE. KEPT ELEVATE HOB FOR ASPIRATION PRECAUTION AND ENSURE AIRWAY, ALSO LOWEST POSITION OF THE BED FOR SAFETY. CALL LIGHT WITHIN REACH, WILL ENDORSE TO INFRASTRUCTURE SOFTWARE ENGINEER. Addendum: 09/13/21 at 1842 by TRESA MCKEON RN ERROR
--- NOTE | 2021-09-13 18:42 | NUR ---
RN CLOSING NOTE PATENT IN BED, REMAINS AO X 4, IN NO ACUTE DISTRESS OBSERVED. RESPIRATORY EVEN AND UNLABORED ON ROOM AIR. SKIN IS WARM TO TOUCH KEEP CLEAN/DRY, INTACT IV SITE. KEPT ELEVATE HOB FOR ASPIRATION PRECAUTION AND ENSURE AIRWAY, ALSO LOWEST POSITION OF THE BED FOR SAFETY. CALL LIGHT WITHIN REACH, WILL ENDORSE TO STAFFING CLERK.
--- NOTE | 2021-09-13 18:59 | NUR ---
PATIENT NOTICED BS 509, RECHECKED BS WAS 414, MADE AWARE, RECEIVED NEW ORDER:GIVE 20 UNITS REGULAR INSULIN AND CHECK IN 2 HOURS. NOTED AND WILL ENDORSE EXPORT DOCUMENTS CLERK.
--- NOTE | 2021-09-13 19:15 | NUR ---
RN OPENING NOTE RECEIVED CARE OF PATIENT WHILE PATIENT IN BED, A/O X4, ABLE TO MAKE NEEDS KNOWN. PATIENT IN NO DISCOMFORT OR PAIN AT THIS TIME. PATIENT ON ROOM AIR WITH O2 SAT 100%, BREATHING EVEN AND UNLABORED. PATIENT WITH L FA IV ACCESS 20G PATENT AND RUNNING WITH IV NS AT 100 ML/HR. PATIENT NOTED WITH BLOOD GLUCOSE OF 355, WILL ADMINISTER SCHEDULED INSULIN 20 UNITS AND REASSESS BLOOD GLUCOSE IN TWO HOURS PER MD ORDERS. PATIENT IN NO DISTRESS AT THIS TIME. SAFETY MEASURES IMPLEMENTED, BED ALARM ON, CALL LIGHT WITHIN REACH, BED AT LOWEST POSITION WITH WHEELS LOCKED IN PLACE. WILL CONTINUE TO MONITOR PATIENT.
[2021-09-13] MEDS ORDERED: INSULIN REGULAR, HUMAN 100 UNIT/ML 10 ML VIAL SQ ONE (19:30)
[2021-09-13 19:59] LABS: CREATININE 1.4 mg/dL (0.6-1.3); POTASSIUM 3.5 mmol/L (3.5-5.1)
[2021-09-13] MEDS: IV NS 0.9% 1,000 ML IV PRN (20:02)
--- NOTE | 2021-09-13 20:05 | NUR ---
RN NOTES CRITICAL LAB VALUE REPORTED BY LAB, BLOOD GLUCOSE OF 385. SCHEDULED 20 UNIT REGULAR INSULIN ONE TIME DOSE GIVEN. WILL REASSESS GLUCOSE LEVELS IN TWO HOURS PER MD ORDERS.
--- NOTE | 2021-09-13 22:56 | NUR ---
RN NOTES PATIENT'S BLOOD GLUCOSE RESULTS ARE 34 AND 24, BOTH READINGS TAKEN ONE MINUTE APART ON DIFFERENT HANDS. MILTON MEADOWS ETHYLENE OXIDE PANELBOARD OPERATOR MADE AWARE OF CRITICAL VALUES, ADMINISTERED DEXTROSE INJ 50% 50ML PER PROTOCOL. PATIENT REMAINS IN BED, A/O X4, IN NO DISTRESS, FEELING DIAPHORETIC AND CLAMMY. WILL CONTINUE TO MONITOR PATIENT CLOSELY.
--- NOTE | 2021-09-13 23:43 | NUR ---
RN NOTES PATIENT'S BLOOD GLUCOSE IS 77. PATIENT IS A/O X4, NO SIGNS OF DISTRESS, NO LONGER DIAPHORETIC AND CLAMMY, SKIN COLOR AND TEMPERATURE WNL, WILL CONTINUE TO MONITOR.
[2021-09-14] VITALS: BP 128/59
[2021-09-14 00:59] LABS: CALCIUM, SERUM 8.4 mg/dL (8.5-10.1); CARBON DIOXIDE 26 mmol/L (21-32); CHLORIDE 106 mmol/L (98-107); CREATININE 0.7 mg/dL (0.6-1.3); GLUCOSE 60 mg/dL (74-106); POTASSIUM 3.1 mmol/L (3.5-5.1); SODIUM SERUM 138 mmol/L (136-145); UREA NITROGEN, BLOOD 10 mg/dL (7-18)
[2021-09-14] MEDS: CIPROFLOXACIN IV RTU 400 MG in PREMIX 1 EA IV SCH ×2 (01:43→13:24)
[2021-09-14 04:00] VITALS: BP 113/51
[2021-09-14] MEDS: METRONIDAZOLE 500MG/ NS 100ML 500 MG in PREMIX 1 EA IV SCH ×3 (06:38→22:28)
--- NOTE | 2021-09-14 07:00 | NUR ---
RN CLOSING NOTES WILL ENDORSE CARE OF PATIENT TO AM NURSE WHILE PATIENT IN BED, ASLEEP, WAKES UP TO NAME, A/O X4, ABLE TO VERBALIZE NEEDS. PATIENT'S MOST RECENT GLUCOSE READING AT 0500= 95. PATIENT REMAINS STABLE WITH GLUCOSE CONTROLLED AND WITHIN NORMAL LIMITS. PATIENT EXPRESSES NO PAIN, DISCOMFORT, OR SIGNS OF DISTRESS. ALL SAFETY MEASURES FOLLOWED. WILL ENDORSE TO AM NURSE FOR LYLA.
--- NOTE | 2021-09-14 07:18 | NUR ---
ms rn received on bed, awake, alert,oriented x4, not in any form of distress, respirations even and unlabored,no sob noted, lugs are diminish, abdomen soft,positive bowel sounds, denies pain at this time.
[2021-09-14 08:00] VITALS: BP 151/78
[2021-09-14] MEDS: INSULIN GLARGINE, 100 UNIT/ML CARTRIDGE SQ SCH (09:00)
--- NOTE | 2021-09-14 09:00 | NUR ---
ms rn breakfast served,due meds given,tolerated well. held lantus at this time, hx of hypoglycemia, will verify w/ md later.
[2021-09-14 09:30] LABS: ALBUMIN 2.8 g/dL (3.4-5.0); BILIRUBIN,TOTAL 0.7 mg/dL (0.2-1.0); CALCIUM, SERUM 7.9 mg/dL (8.5-10.1); CREATININE 0.7 mg/dL (0.6-1.3); POTASSIUM 2.9 mmol/L (3.5-5.1); TOTAL PROTEIN, SERUM 5.2 g/dL (6.4-8.2)
[2021-09-14] MEDS: PANTOPRAZOLE 40 MG TABLET.DR PO SCH (09:33)
[2021-09-14] MEDS: busPIRone 5 MG TABLET PO SCH ×2 (09:33→17:29)
[2021-09-14] MEDS: ESCITALOPRAM OXALATE (10 MG) 10 MG TABLET PO SCH (09:33)
[2021-09-14] MEDS: BLOOD SUGAR DIAGNOSTIC 1 EACH STRIP VI SCH ×4 (09:34→22:41)
[2021-09-14] MEDS: LEVOTHYROXINE SODIUM 88 MCG TABLET PO SCH (09:37)
[2021-09-14] MEDS: GLUCERNA SHAKE 237 ML CAN PO SCH ×3 (09:54→17:30)
[2021-09-14] MEDS ORDERED: POTASSIUM CHLORIDE 20 MEQ TAB.PRT.SR PO SCH (10:00)
--- NOTE | 2021-09-14 10:50 | NUR ---
ms trent was seen by primary, w/ order to aries/c elvia.
--- NOTE | 2021-09-14 12:25 | NUR ---
ms rn bs- 167-patient refused coverage, w/hx of hypoglycemia per patient.
[2021-09-14 16:00] VITALS: BP 146/72
[2021-09-14] MEDS: ATORVASTATIN 40 MG TABLET PO SCH (17:30)
[2021-09-14] MEDS: ENOXAPARIN SODIUM 40 MG/0.4 ML DISP.SYRIN SQ SCH (17:34)
--- NOTE | 2021-09-14 18:00 | NUR ---
ms trent bs=-284. 6 units of regular insulin given sq.
[2021-09-14] MEDS: INSULIN REGULAR, HUMAN 100 UNIT/ML 3 ML VIAL SQ PRN (18:07)
[2021-09-14 18:59] LABS: CALCIUM, SERUM 7.9 mg/dL (8.5-10.1); CREATININE 0.9 mg/dL (0.6-1.3)
--- NOTE | 2021-09-14 19:00 | NUR ---
lab called in stated that glucose 441, primary RN checked at 1800 bs was 274 6 units regular insulin given as ordered will endorsed to incoming nurse regarding above
--- NOTE | 2021-09-14 19:20 | NUR ---
RN OPENING NOTE RECEIVED CARE OF PATIENT WHILE PATIENT IN BED, A/O X4, ABLE TO MAKE NEEDS KNOWN. PATIENT IN NO DISCOMFORT OR PAIN AT THIS TIME. PATIENT ON ROOM AIR WITH O2 SAT 100%, BREATHING EVEN AND UNLABORED. PATIENT WITH L FA IV ACCESS 20G PATENT AND RUNNING WITH IV NS AT 100 ML/HR. AM NURSE ENDORSED THAT PATIENT'S LATEST GLUCOSE READING WAS 441, 6 UNITS OF REGULAR INSULIN GIVEN PER SLIDING SCALE ORDERS, MD AWARE. PATIENT IN NO DISTRESS AT THIS TIME. SAFETY MEASURES IMPLEMENTED, BED ALARM ON, CALL LIGHT WITHIN REACH, BED AT LOWEST POSITION WITH WHEELS LOCKED IN PLACE. WILL CONTINUE TO MONITOR PATIENT.
[2021-09-14] MEDS: IV NS 0.9% 1,000 ML IV PRN (19:40)
--- NOTE | 2021-09-14 19:52 | NUR ---
ms rn late entry- blood sugar -284 - 6 units was given, but there was clerical error in the computer, , it is showing 600 units, actual units given was 6 units, not 600.
[2021-09-15] VITALS: BP 151/75
[2021-09-15] MEDS: CIPROFLOXACIN IV RTU 400 MG in PREMIX 1 EA IV SCH (01:27)
[2021-09-15] MEDS: IV NS 0.9% 1,000 ML IV PRN (05:14)
[2021-09-15] MEDS: METRONIDAZOLE 500MG/ NS 100ML 500 MG in PREMIX 1 EA IV SCH (05:14)
--- NOTE | 2021-09-15 06:36 | NUR ---
RN CLOSING NOTES WILL ENDORSE CARE OF PATIENT WHILE PATIENT IN BED, SLEEPING, WAKES UP TO NAME. PATIENT A/O X4, ABLE TO MAKE NEEDS KNOWN THROUGHOUT SHIFT. ALL NEEDS ATTENDED TO, ALL DUE MEDS GIVEN. NO SIGNIFICANT FINDINGS UPON ALL NURSING ASSESSMENTS. CLOSE GLUCOSE MONITORING THROUGHOUT SHIFT. NO DISTRESS NOTED. ON ROOM AIR, O2 SAT 98%, BREATHING EVEN AND UNLABORED. ALL SAFETY MEASURES IMPLEMENTED PER PROTOCOL. WILL ENDORSE TO AM NURSE FOR LYLA.
[2021-09-15] MEDS ORDERED: CIPR500T5 PO (07:01)
[2021-09-15] MEDS ORDERED: METR500T PO (07:01)
[2021-09-15 08:00] VITALS: BP 151/75
[2021-09-15] MEDS: ESCITALOPRAM OXALATE (10 MG) 10 MG TABLET PO SCH (08:03)
[2021-09-15] MEDS: busPIRone 5 MG TABLET PO SCH (08:03)
[2021-09-15] MEDS: BLOOD SUGAR DIAGNOSTIC 1 EACH STRIP VI SCH (08:03)
[2021-09-15] MEDS: PANTOPRAZOLE 40 MG TABLET.DR PO SCH (08:03)
[2021-09-15] MEDS: LEVOTHYROXINE SODIUM 88 MCG TABLET PO SCH (08:03)
[2021-09-15 08:17] LABS: ALBUMIN 3.2 g/dL (3.4-5.0); BILIRUBIN,TOTAL 1.2 mg/dL (0.2-1.0); CALCIUM, SERUM 8.3 mg/dL (8.5-10.1); CREATININE 0.9 mg/dL (0.6-1.3); POTASSIUM 3.8 mmol/L (3.5-5.1); TOTAL PROTEIN, SERUM 6.2 g/dL (6.4-8.2)
[2021-09-15] MEDS: GLUCERNA SHAKE 237 ML CAN PO SCH (08:24)
[2021-09-15] MEDS: INSULIN REGULAR, HUMAN 100 UNIT/ML 3 ML VIAL SQ PRN (09:03)
[2021-09-15] MEDS ORDERED: INSULIN GLARGINE, 100 UNIT/ML CARTRIDGE SQ SCH (09:30)
--- NOTE | 2021-09-15 10:55 | NUR ---
RN NOTE PT D/C TO HOME. WAS PICKED UP BY SON. PT IN GOOD CONDITION. NOT IN DISTRESS. D/C INSTRUCTIONS GIVEN AND EXPLAINED, PT VERBALIZED UNDERSTANDING. IV ACCESS D/C.
== END 2021-09-15 10:40 | disposition home or self-care (01) | DRG 391 ==
LOC: ER 15:51 → ICU 17:50 → MEDSG1 09-12 10:34
PROVIDERS: ADMIT Student in an Organized Health Care Education/Training Program; ATTEND Internal Medicine
DX: A09 Infectious gastroenteritis and colitis, unspecified (principal); E10.10 Type 1 diabetes mellitus with ketoacidosis without coma; E44.0 Moderate protein-calorie malnutrition; Z68.1 Body mass index [BMI] 19.9 or less, adult; E03.9 Hypothyroidism, unspecified; E78.5 Hyperlipidemia, unspecified; E86.0 Dehydration; M06.9 Rheumatoid arthritis, unspecified; Z20.822 Contact with and (suspected) exposure to COVID-19; E66.01 Morbid (severe) obesity due to excess calories; E87.5 Hyperkalemia; E87.6 Hypokalemia; Z79.4 Long term (current) use of insulin; Z88.0 Allergy status to penicillin
CPT/HCPCS: 36415; 36600; 71045-TC; 80048-TC; 80053-TC; 80076-TC; 81001; 82962-TC; 83605-TC; 83690-TC; 83735-TC; 84100-TC; 84484-TC; 85025-TC; 87081-TC; A4216; G0378; J0744; J1650; J1815; J2185; J2270; J2405; J3475; J3480; J7030; J7042; J7050